=== PATIENT | female | born 1975 | race Caucasian/White ===

== ENCOUNTER 2018-04-08 17:15 | Emergency (ER) | payer OTHER ==
[2018-04-08] MEDS: KETOROLAC 15 MG INJ IV (18:10)
[2018-04-08] MEDS: LORAZEPAM 2 MG INJ IV (18:11)
[2018-04-08] MEDS: SOD CHLORIDE 0.9% 1,000 ML IV (18:11)
== END 2018-04-08 19:41 | disposition home or self-care (01) ==
LOC: E/R 17:15
DX: F41.9 Anxiety disorder, unspecified (principal); F43.0 Acute stress reaction; R40.2142 Coma scale, eyes open, spontaneous, at arrival to emergency department; R40.2242 Coma scale, best verbal response, confused conversation, at arrival to emergency department; R40.2362 Coma scale, best motor response, obeys commands, at arrival to emergency department; R07.9 Chest pain, unspecified; R51 Headache
CPT/HCPCS: 70450; 71045; 72125; 96374; 96375; 99285-25

== ENCOUNTER 2018-04-17 17:07 | Inpatient (IN) | payer OTHER ==
[2018-04-17] MEDS: ACETAMINOPHEN 500 MG TAB PO (19:45)
[2018-04-17] MEDS: SOD CHLORIDE 0.9% 1,000 ML IV (19:45)
[2018-04-17 19:47] LABS: WHITE BLOOD COUNT 46.9 10^3/ul (4.8-10.8)
[2018-04-17 19:47] LABS: ABNORMAL IP MESSAGE 1; HEMATOCRIT 37.4 % (37.0-47.0); HEMOGLOBIN 11.8 g/dl (12.0-16.0); MEAN CORPUSCULAR HEMOGLOBIN 26.5 pg (29.0-33.0); MEAN CORPUSCULAR HGB CONC 31.6 g/dl (32.0-37.0); MEAN PLATELET VOLUME 11.3 fl (7.4-10.4); PLATELET COUNT 279 10^3/UL (140-415); RED BLOOD COUNT 4.45 10^6/ul (4.20-5.40); RED CELL DISTRIBUTION WIDTH 14.1 % (11.5-14.5)
[2018-04-17 19:50] LABS: ADD UMIC YES; UR ASCORBIC ACID NEGATIVE (NEGATIVE); UR BILIRUBIN (Dip) NEGATIVE (NEGATIVE); UR BLOOD (Dip) 3+ mg/dL (NEGATIVE); UR CLARITY CLEAR (CLEAR); UR COLOR YELLOW (YELLOW); UR GLUCOSE (Dip) NEGATIVE (NEGATIVE); UR KETONES (Dip) NEGATIVE (NEGATIVE); UR LEUKOCYTE ESTERASE (Dip) NEGATIVE Leu/ul (NEGATIVE); UR MUCUS FEW /HPF (NONE SEEN); UR NITRITE (Dip) NEGATIVE (NEGATIVE); UR RBC 20 /HPF (0-5); UR SPECIFIC GRAVITY (Dip) 1.016 (1.003-1.030); UR TOTAL PROTEIN (Dip) NEGATIVE (NEGATIVE); UR UROBILINOGEN (Dip) NEGATIVE (NEGATIVE); UR WBC 1 /HPF (0-5)
[2018-04-17 19:52] LABS: POSITIVE DIFF @See below
[2018-04-17 19:54] LABS: ADD MAN DIFF? YES
[2018-04-17 20:13] LABS: ALANINE AMINOTRANSFERASE 32 IU/L (13-69); ALBUMIN 4.7 g/dl (3.3-4.9); ALBUMIN/GLOBULIN RATIO 1.42; ALKALINE PHOSPHATASE 79 IU/L (42-121); ANION GAP 15 (8-16); ASPARTATE AMINO TRANSFERASE 25 IU/L (15-46); BILIRUBIN,INDIRECT 0.5 mg/dl (0-1.1); BILIRUBIN,TOTAL 0.5 mg/dl (0.2-1.3); BLOOD UREA NITROGEN 14 mg/dl (7-20); CALCIUM 9.4 mg/dl (8.4-10.2); CARBON DIOXIDE 23 mmol/L (21-31); CHLORIDE 107 mmol/L (97-110); CREATININE 0.84 mg/dl (0.44-1.00); GLUCOSE 103 mg/dl (70-220); POTASSIUM 4.6 mmol/L (3.5-5.1); SODIUM 140 mmol/L (135-144)
[2018-04-17 20:53] LABS: ANISOCYTOSIS 1+ (0-0); EOSINOPHILS % (M) 2 % (0-7); LYMPHOCYTES #M 27.2 10^3/ul (0.8-2.9); LYMPHOCYTES % (M) 58 % (15-51); MICROCYTOSIS 1+ (0-0); MONOCYTE #M 1.4 10^3/ul (0.3-0.9); MONOCYTES % (M) 3 % (0-11); PLATELET ESTIMATE NORMAL; POIKILOCYTOSIS 2+ (0-0); REACTIVE LYMPHOCYTES #M 3.2 10^3/ul (0.0-0.0); REACTIVE LYMPHOCYTES% (M) 7 % (0-0); SEGMENTED NEUTROPHILS (M) % 30 % (39-77); SMUDGE%M 157 % (0-0)
[2018-04-17] MEDS: CEFTRIAXONE 1 GM/50 ML (PMX) 50 ML IVPB (20:57)
[2018-04-18 00:05] LABS: LACTATE DEHYDROGENASE 449 IU/L (313-618)
[2018-04-18 00:06] LABS: URIC ACID 3.9 mg/dl (3.1-7.9)
[2018-04-18] MEDS ORDERED: morphine 2 MG INJ IV (02:00)
[2018-04-18] MEDS ORDERED: ONDANSETRON 4 MG INJ IV (02:00)
[2018-04-18] MEDS: SOD CHLORIDE 0.9% 1,000 ML IV ×2 (02:38→15:05)
[2018-04-18 05:39] LABS: WHITE BLOOD COUNT 32.4 10^3/ul (4.8-10.8)
[2018-04-18 05:39] LABS: ABNORMAL IP MESSAGE 1; HEMATOCRIT 31.8 % (37.0-47.0); MEAN CORPUSCULAR HEMOGLOBIN 26.2 pg (29.0-33.0); MEAN CORPUSCULAR HGB CONC 31.4 g/dl (32.0-37.0); MEAN CORPUSCULAR VOLUME 83.2 fl (82.0-101.0); MEAN PLATELET VOLUME 11.8 fl (7.4-10.4); PLATELET COUNT 202 10^3/UL (140-415); RED BLOOD COUNT 3.82 10^6/ul (4.20-5.40); RED CELL DISTRIBUTION WIDTH 14.3 % (11.5-14.5)
[2018-04-18 05:50] LABS: ADD MAN DIFF? YES; POSITIVE DIFF @See below
[2018-04-18 06:06] LABS: ALANINE AMINOTRANSFERASE 29 IU/L (13-69); ALBUMIN 3.9 g/dl (3.3-4.9); ALBUMIN/GLOBULIN RATIO 1.44; ALKALINE PHOSPHATASE 61 IU/L (42-121); ANION GAP 13 (8-16); ASPARTATE AMINO TRANSFERASE 21 IU/L (15-46); BILIRUBIN,INDIRECT 0.7 mg/dl (0-1.1); BILIRUBIN,TOTAL 0.7 mg/dl (0.2-1.3); BLOOD UREA NITROGEN 12 mg/dl (7-20); CALCIUM 8.5 mg/dl (8.4-10.2); CARBON DIOXIDE 26 mmol/L (21-31); CHLORIDE 107 mmol/L (97-110); CREATININE 0.77 mg/dl (0.44-1.00); GLUCOSE 88 mg/dl (70-220); POTASSIUM 4.2 mmol/L (3.5-5.1); SODIUM 142 mmol/L (135-144); TOTAL PROTEIN 6.6 g/dl (6.1-8.1)
[2018-04-18 06:11] LABS: LACTIC ACID 0.8 mmol/L (0.5-2.0)
[2018-04-18 09:20] LABS: ANISOCYTOSIS 1+ (0-0); BAND NEUTROPHILS #M 0.3 10^3/ul (0.0-0.6); BAND NEUTROPHILS % (M) 1 % (0-4); EOSINOPHILS % (M) 2 % (0-7); LYMPHOCYTES % (M) 65 % (15-51); MICROCYTOSIS 1+ (0-0); MONOCYTE #M 0.6 10^3/ul (0.3-0.9); MONOCYTES % (M) 2 % (0-11); PLATELET ESTIMATE NORMAL; SEG NEUT #M 8.5 10^3/ul (1.6-7.5); SEGMENTED NEUTROPHILS (M) % 26 % (39-77); SMUDGE%M 155 % (0-0)
[2018-04-18 13:58] LABS: ERYTHROCYTE SEDIMENTATION RATE 13 mm/Hr (0-20)
[2018-04-18 14:18] LABS: C-REACTIVE PROTEIN < 0.5 mg/dl (0.0-0.9)
[2018-04-18] MEDS: ACETAMINOPHEN 325 MG TAB PO (18:44)
[2018-04-18] MEDS: CEFTRIAXONE 1 GM/50 ML (PMX) 50 ML IVPB (21:31)
[2018-04-19] MEDS: SOD CHLORIDE 0.9% 1,000 ML IV ×2 (03:46→18:50)
[2018-04-19 05:37] LABS: WHITE BLOOD COUNT 27.2 10^3/ul (4.8-10.8)
[2018-04-19 05:37] LABS: ABNORMAL IP MESSAGE 1; HEMATOCRIT 33.1 % (37.0-47.0); HEMOGLOBIN 10.4 g/dl (12.0-16.0); MEAN CORPUSCULAR HEMOGLOBIN 26.1 pg (29.0-33.0); MEAN CORPUSCULAR HGB CONC 31.4 g/dl (32.0-37.0); MEAN CORPUSCULAR VOLUME 83.2 fl (82.0-101.0); PLATELET COUNT 183 10^3/UL (140-415); RED BLOOD COUNT 3.98 10^6/ul (4.20-5.40); RED CELL DISTRIBUTION WIDTH 14.1 % (11.5-14.5)
[2018-04-19 05:56] LABS: ADD MAN DIFF? YES; POSITIVE DIFF @See below
[2018-04-19 06:06] LABS: ALANINE AMINOTRANSFERASE 22 IU/L (13-69); ALBUMIN 3.9 g/dl (3.3-4.9); ALBUMIN/GLOBULIN RATIO 1.44; ALKALINE PHOSPHATASE 62 IU/L (42-121); ANION GAP 10 (8-16); ASPARTATE AMINO TRANSFERASE 19 IU/L (15-46); BILIRUBIN,INDIRECT 0.4 mg/dl (0-1.1); BILIRUBIN,TOTAL 0.4 mg/dl (0.2-1.3); BLOOD UREA NITROGEN 9 mg/dl (7-20); CALCIUM 8.6 mg/dl (8.4-10.2); CARBON DIOXIDE 24 mmol/L (21-31); CHLORIDE 111 mmol/L (97-110); CREATININE 0.68 mg/dl (0.44-1.00); GLUCOSE 100 mg/dl (70-220); POTASSIUM 3.8 mmol/L (3.5-5.1); SODIUM 141 mmol/L (135-144); TOTAL PROTEIN 6.6 g/dl (6.1-8.1)
[2018-04-19 08:03] LABS: ANISOCYTOSIS 1+ (0-0); EOSINOPHILS % (M) 2 % (0-7); LYMPHOCYTES #M 18.7 10^3/ul (0.8-2.9); LYMPHOCYTES % (M) 69 % (15-51); MICROCYTOSIS 1+ (0-0); MONOCYTE #M 0.2 10^3/ul (0.3-0.9); MONOCYTES % (M) 1 % (0-11); PLATELET ESTIMATE NORMAL; POLYCHROMASIA 1+ (0-0); REACTIVE LYMPHOCYTES #M 0.8 10^3/ul (0.0-0.0); REACTIVE LYMPHOCYTES% (M) 3 % (0-0); SEGMENTED NEUTROPHILS (M) % 25 % (39-77); SMUDGE%M 186 % (0-0)
[2018-04-19 08:50] LABS: PATH REVIEW? YES
[2018-04-19] MEDS: IBUPROFEN 400 MG TAB PO ×2 (12:30→21:26)
[2018-04-19] MEDS: ACETAMINOPHEN 325 MG TAB PO (14:15)
[2018-04-19] MEDS: CARISOPRODOL 350 MG TAB PO ×2 (16:47→21:27)
[2018-04-19] MEDS: CEFTRIAXONE 1 GM/50 ML (PMX) 50 ML IVPB (21:26)
[2018-04-20] MEDS: IBUPROFEN 400 MG TAB PO (08:22)
[2018-04-20] MEDS: SOD CHLORIDE 0.9% 1,000 ML IV (08:23)
[2018-04-20] MEDS: ACETAMINOPHEN 325 MG TAB PO ×2 (08:25→08:26)
[2018-04-20] MEDS: CARISOPRODOL 350 MG TAB PO (08:59)
[2018-04-20] MEDS ORDERED: morphine LIQ (10 MG/5 ML) CUP PO (16:00)
== END 2018-04-20 18:45 | disposition home or self-care (01) | DRG 842 ==
LOC: MS3 20:56 → FTE 17:07
DX: C91.10 Chronic lymphocytic leukemia of B-cell type not having achieved remission (principal); M54.9 Dorsalgia, unspecified; V43.52XD Car driver injured in collision with other type car in traffic accident, subsequent encounter
CPT/HCPCS: 36415; 70450; 71046; 76700; 80053; 81001; 81025; 83605; 83615; 84560; 85025; 85651; 86140; 87040; 97116; 97163; 97530; 99285-25